=== PATIENT | male | born 1955 | race Two or more races ===

== ENCOUNTER 2017-04-03 19:27 | Emergency (ER) | payer OTHER ==
[~2017-04-03] VITALS: Ht 193 cm; Wt 86.2 kg
[2017-04-03] MEDS ORDERED: VIAGRA (19:44)
--- NOTE | 2017-04-03 19:45 | NUR ---
Pt BIB [facility], reports pt had syncope, PB=525, positive orthostatic in field. Pt states he had no trauma when he fell to floor, feels fine now. Pt denies CP, SOB, dizziness, n/v, no other complaints, no distress noted. Pt placed on monitor, EKG -- given to MD, IV 20g right hand, Blood drawn and picked up by lab.
[2017-04-03 20:05] LABS: BASOPHILS # (AUTO) 0.1 K/uL (0.0-8.0); BASOPHILS % (AUTO) 1.4 % (0.0-2.0); EOSINOPHILS # (AUTO) 0.2 K/uL (0.0-0.7); EOSINOPHILS % (AUTO) 2.8 % (0.0-7.0); HEMATOCRIT 41.9 % (36.7-47.1); LYMPHOCYTES # (AUTO) 1.6 K/uL (20.0-40.0); LYMPHOCYTES % (AUTO) 30.5 % (20.5-51.5); MEAN CORPUSCULAR HEMOGLOBIN 28.2 uug (23.8-33.4); MEAN CORPUSCULAR HGB CONC 33 g/dL (32.5-36.3); MEAN CORPUSCULAR VOLUME 84.4 fL (73.0-96.2); MONOCYTES # (AUTO) 0.5 K/uL (2.0-10.0); MONOCYTES % (AUTO) 8.7 % (0.0-11.0); NEUTROPHILS % (AUTO) 56.6 % (38.5-71.5); PLATELET COUNT (AUTO) 246 K/uL (152-348); RED BLOOD CELL COUNT(AUTO) 4.96 MIL/uL (4.06-5.63); WHITE BLOOD COUNT (AUTO) 5.3 K/uL (3.6-10.2)
[2017-04-03 20:11] LABS: POTASSIUM 3.3 mmol/L (3.5-5.1)
--- NOTE | 2017-04-03 20:48 | NUR ---
Removed IV intact, site okay, bandaged. Gave pt d/c instructions, verbalized understanding.
== END 2017-04-03 20:51 | disposition home or self-care (01) ==
LOC: ER 19:34
DX: R55 Syncope and collapse (principal); Z88.0 Allergy status to penicillin
CPT/HCPCS: 36415; 85025; 93005; A4663